=== PATIENT | male | born 1985 | race African-American/Black ===

== ENCOUNTER 2018-02-25 13:30 | Emergency (ER) | payer SELFPAY ==
--- NOTE | 2018-02-25 15:49 | RAD ---
CHEST 2 VIEWS: Date: 02/25/18 HISTORY: Cough. COMPARISON: Radiograph dated 07/15/15. FINDINGS: Lungs are clear. No pneumothorax or effusion. Cardiac silhouette and mediastinal contours are within normal limits. IMPRESSION: No acute intrathoracic abnormality. POS: [facility]
== END 2018-02-25 16:16 | disposition home or self-care (01) ==
LOC: ERS 13:30
DX: R05 Cough (principal); F17.210 Nicotine dependence, cigarettes, uncomplicated
CPT/HCPCS: 71046

== ENCOUNTER 2019-04-23 08:16 | Emergency (ER) | payer SELFPAY ==
--- NOTE | 2019-04-23 08:35 | RAD ---
EXAM: CHEST TWO VIEWS 04/23/2019 8:33 AM HISTORY: History of cough COMPARISON: February 25, 2018 FINDINGS: Lungs: No acute airspace consolidation. Heart: Normal in size and contour. Pulmonary Vessels: Normal. Costophrenic Angles: Clear. Pneumothorax: None. Osseous Structures: Intact. Additional Findings: None. IMPRESSION: No significant acute intrathoracic disease.
[2019-04-23] MEDS ORDERED: Dexamethasone 4 mg/ml Vial ONE (09:10)
[2019-04-23] MEDS ORDERED: Albuterol Sulfate 2.5 mg/0.5 ml Neb ONE ×2 (09:18→09:20)
== END 2019-04-23 09:50 | disposition home or self-care (01) ==
LOC: ERS 08:16
DX: J20.9 Acute bronchitis, unspecified (principal); F95.2 Tourette's disorder; F17.210 Nicotine dependence, cigarettes, uncomplicated
CPT/HCPCS: 71046; 87804; 96372; J1100; J7611; J7620

== ENCOUNTER 2019-07-04 09:16 | Emergency (ER) | payer SELFPAY ==
[2019-07-04] MEDS ORDERED: Ketorolac Tromethamine 30 MG/ML VIAL ONE (09:33)
--- NOTE | 2019-07-04 09:49 | RAD ---
EXAM: XR Wrist 3 Rt View STANDARD PROVIDED CLINICAL HISTORY: Pain status post injury COMPARISON: None FINDINGS: Mildly displaced fracture involving the radial base of the fifth metacarpal, possibly intra-articular . No additional fracture is evident. Mild negative ulnar variance. Alignment appears otherwise anatomic. Joint spaces appear preserved. IMPRESSION: Fifth metacarpal base fracture.
--- NOTE | 2019-07-04 09:50 | RAD ---
EXAM: XR Hand Rt 3 View STANDARD PROVIDED CLINICAL HISTORY: Hand pain status post injury COMPARISON: None FINDINGS: Mildly displaced likely intra-articular fracture involving the radial base of the fifth metacarpal. N o additional fracture is evident. Alignment appears anatomic. Joint spaces appear preserved. IMPRESSION: Fifth metacarpal base fracture.
== END 2019-07-04 10:36 | disposition home or self-care (01) ==
LOC: ERS 09:16
DX: S62.316A Displaced fracture of base of fifth metacarpal bone, right hand, initial encounter for closed fracture (principal); F95.2 Tourette's disorder; F17.210 Nicotine dependence, cigarettes, uncomplicated; W22.01XA Walked into wall, initial encounter
CPT/HCPCS: 29125; 96372; 99283; J1885